=== PATIENT | male | born 1960 | race Caucasian/White ===

== ENCOUNTER 2019-04-30 16:16 | Day surgery (SDC) | payer OTHER, SELFPAY ==
[2019-04-30] MEDS ORDERED: CEFAZOLIN 1 GM VIAL ONE ×2 (16:52→17:25)
[2019-04-30] MEDS ORDERED: Morphine 4 MG/ML VIAL ONE ×2 (16:52→17:23)
--- NOTE | 2019-04-30 16:54 | RAD ---
Radiograph left forearm 2 views: DATE: 04/30/2019 HISTORY: 58-year-old male status post traumatic laceration to forearm. FINDINGS: There is soft tissue irregularity at the volar radial side of the distal forearm/wrist. No radiopaque foreign body or subcutaneous emphysema. No fracture or any other focal osseous abnormality of the radius or ulna. IMPRESSION: 1. Distal forearm soft tissue laceration. 2. No osseous injury.
[2019-04-30] MEDS ORDERED: HYDROmorphone 2 MG/ML VIAL ONE (17:22)
[2019-04-30] MEDS ORDERED: Fentanyl 100 MCG/2 ML VIAL ONE ×2 (17:22→18:50)
[2019-04-30 17:33] LABS: #Basophils 0.1 thou/uL (0.0-0.2); #Eosinphils 0.4 thou/uL (0.0-0.7); #Lymphocytes 1.1 thou/uL (1.20-3.40); #Monocytes 0.7 thou/uL (0.11-0.59); #Neutrophils 5.4 thou/uL (1.40-6.50); %Basophils 0.8 % (0.0-1.0); %Eosinophils 5.7 % (0.0-10.0); %Lymphocytes 14.7 % (21.0-51.0); %Monocytes 8.7 % (0.0-10.0); %Neutrophils 70.2 % (42.0-75.0); Hemoglobin 14.7 g/dL (14.0-18.0); Mean Corpuscular HGB CONC 33.8 g/dL (32.0-36.0); Mean Corpuscular Hemoglobin 30.6 pg (27.0-31.0); Mean Corpuscular Volume 90.4 fL (78.0-98.0); Mean Platelet Volume 9.4 fL (7.4-10.4); Platelet Count 151 thou/uL (130-400); RBC Distribution Width 12.8 % (11.5-14.5); White Blood Cell (WBC) Count 7.7 thou/uL (4.8-10.8)
[2019-04-30 17:39] LABS: PTT 25.6 SEC (22.9-36.1); Prothrombin Time 13.2 SEC (12.0-14.7)
[2019-04-30 17:53] LABS: ALT (SGPT) 42 U/L (8-55); AST (SGOT) 33 U/L (5-34); Albumin 4.1 g/dL (3.5-5.0); Alkaline Phosphatase 110 U/L (40-150); Anion Gap 14 mmol/L (10-20); BUN (Urea Nitrogen) 26 mg/dL (8.4-25.7); Bilirubin, Total 0.3 mg/dL (0.2-1.2); Calc. Creatinine Clearance 0 mL/min (70-130); Carbon Dioxide 18 mmol/L (22-29); Chloride 111 mmol/L (98-107); Estimated GFR-MDRD 68; Globulin 3.2 g/dL (2.4-3.5); Glucose 114 mg/dL (70-105); Protein, Total 7.3 g/dL (6.0-8.3); Sodium 139 mmol/L (136-145)
[2019-04-30] MEDS ORDERED: HYDROcodone/Acetaminophen 5/325 mg Tablet ONE (20:13)
--- NOTE | 2019-04-30 21:04 | OP ---
DATE OF PROCEDURE: 04/30/2019 PREOPERATIVE DIAGNOSIS: Left forearm laceration - 6.5 cm in total length. POSTOPERATIVE DIAGNOSIS: Left forearm laceration with radial artery transection and tendon transection. PROCEDURES PERFORMED: Forearm exploration with ligation of radial artery and loose closure - I spoke with Dr. Lilly with Orthopedic surgery and he will arrange followup with Dr. Seay for tendon repair at a later date. ESTIMATED BLOOD LOSS: Less than 50 once in the operating room. DRAINS: None. SPECIMENS: None. DESCRIPTION OF PROCEDURE: The patient was brought to the operating room urgently from the emergency department and placed under general anesthesia. Left arm tourniquets were removed. On removal of the tourniquet, there was obvious bleeding from the 2 radial artery transected ends. These were grasped with hemostats and tied for hemorrhage control. Forearm was then prepped and draped in usual sterile fashion. On entering the forearm wound, there was a tendon, which was lacerated sitting on the thenar side of the wound superficial to the muscle bellies. The radial artery was again clipped. Hemostasis was ensured. Wound edges were freshened. Ulnar artery doppler was strongly triphasic. Wound was copiously irrigated with saline. The wound was then loosely closed with vertical mattress sutures of 3-0 nylon. Sterile dressing was applied. The patient was awakened, extubated, transferred to recovery room and later home. Job ID: [id number] [facility]
--- NOTE | 2019-05-01 00:39 | HP ---
DATE OF CONSULTATION: 04/30/2019 HISTORY OF PRESENT ILLNESS: Mr. 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 His left forearm was lacerated and he had extensive bleeding. I was called by Dr. Henry in the ER. On my arrival, the patient had 2 separate tourniquets on his upper left arm. The patient was screaming in pain. His arm was blue and wrapped with Coban at the site of injury. Due to the history of arterial injury, I did not take his tourniquets down and he was urgently taken to the operating room. PAST MEDICAL HISTORY: COPD. PAST SURGICAL HISTORY: Multiple joint replacements. CURRENT MEDICATIONS: At home, Aleve and Tylenol. ALLERGIES: NONE. SOCIAL HISTORY: He smokes half pack of cigarettes a day. PHYSICAL EXAMINATION: GENERAL: The patient has 2 tourniquets on his arm. I cannot get a good neurologic exam nor vascular exam of his hand due to the tourniquets in him screaming in pain. LUNGS: Clear bilaterally. HEART: Rhythm is regular. VITAL SIGNS: His heart rate is 90 and regular, blood pressure was 145/72, oxygen saturation was 95% on 2 L nasal cannula. ASSESSMENT AND PLAN: Arm laceration with radial artery injury for exploration in the OR. Job ID: [id number]
== END 2019-04-30 20:35 | disposition home or self-care (01) ==
LOC: ERS 16:16 → SDC/OP 20:17
PROVIDERS: ATTEND Thoracic Surgery (Cardiothoracic Vascular Surgery)
PROC: 03QC0ZZ Repair Left Radial Artery, Open Approach (ICD-10-PCS; principal; 2019-04-30)
DX: S55.112A Laceration of radial artery at forearm level, left arm, initial encounter (principal); S56.922A Laceration of unspecified muscles, fascia and tendons at forearm level, left arm, initial encounter; J44.9 Chronic obstructive pulmonary disease, unspecified; F17.210 Nicotine dependence, cigarettes, uncomplicated; W31.2XXA Contact with powered woodworking and forming machines, initial encounter; Y99.0 Civilian activity done for income or pay
CPT/HCPCS: 36415; 80053; 85025; 85610; 85730; 86850; 86900; 86901; G0390; J0690; J1170; J2270; J3010